=== PATIENT | female | born 1975 | race Caucasian/White ===

== ENCOUNTER → 2023-12-22 08:44 | Outpatient (REF) | payer OTHER, SELFPAY ==
[2023-12-22 09:08] VITALS: BP 145/92; BP_SYST 82
[2023-12-22 09:09] VITALS: BMI 20.4
[2023-12-22 11:09] VITALS: BP 133/76
== END ==
LOC: RADI 08:44
PROVIDERS: ATTENDING PHYSICIAN Family Medicine
DX: R59.0 Localized enlarged lymph nodes (principal)
CPT/HCPCS: 88305; 38505; 76942; 88333; 88341; 88342

== ENCOUNTER → 2025-05-12 14:04 | Outpatient (REF) | payer OTHER, SELFPAY | LOC: WDC 14:04 | PROVIDERS: ATTENDING PHYSICIAN Family Medicine | DX: Z12.31 Encounter for screening mammogram for malignant neoplasm of breast (principal) | CPT/HCPCS: 77063; 77067 ==